=== PATIENT | female | born 1990 | race Caucasian/White ===

== ENCOUNTER 2021-10-18 16:28 | Emergency (ER) | payer SELFPAY ==
[2021-10-18 16:43] VITALS: BP 144/97; PULSE 87; RESP 18; TEMP 36.9; O2SAT 98; BMI 36.0
--- NOTE | 2021-10-18 17:33 | USR_ITS ---
PROCEDURE INFORMATION: Exam: US Duplex Artery and Vein of the Abdominal and/or Reproductive Organs. Complete Ovaries Exam date and time: 10/18/2021 6:45 PM Age: 31 years old Clinical indication: Pain and abnormal findings; Abnormal lab test; Other: Positive serum with tubal litigation; Other: Back pain; Gestational age or lmp: 08/17/2021 lmp; Prior surgery; Additional info: History of tubal, positive preg test at home x5 TECHNIQUE: Imaging protocol: Real-time duplex ultrasound scan of the arterial and venous flow with color Doppler flow and spectral waveform analysis with image documentation. Complete duplex exam focused on the ovaries. Duplex exam was added to evaluate for torsion and other vascular conditions. COMPARISON: US pelvic complete* [id number] 07/12/2019 9:06 AM FINDINGS: Right ovary/adnexa: Normal duplex of the ovary. Normal Doppler waveforms and color flow. Arterial and venous flow are normal. No evidence of ovarian torsion. Left ovary/adnexa: Normal duplex of the ovary. Normal Doppler waveforms and color flow. Arterial and venous flow are normal. No evidence of ovarian torsion. PROCEDURE INFORMATION: Exam: US First Trimester, Transabdominal and US , Transvaginal Exam date and time: 10/18/2021 6:45 PM Age: 31 years old Clinical indication: Pain and abnormal findings; Abnormal lab test; Other: Positive serum with tubal litigation; Other: Back pain; Gestational age or lmp: 08/17/2021 lmp; Prior surgery; Additional info: History of tubal, positive preg test at home x5 LABS AND CLINICAL REPORTS: Serum Choriogonadotropin (HCG): 240 mIU/mL Last menstrual period start date: 08/17/2021 Gestational age (LMP): 8 w 6 d Estimated due date (LMP): 05/24/2022 TECHNIQUE: Imaging protocol: Real-time transabdominal obstetrical ultrasound of the maternal pelvis and a first trimester , less than 14 weeks 0 days, with image documentation. Transvaginal imaging was used for better evaluation of the fetus, adnexa, and/or cervix. COMPARISON: US pelvic complete* [id number] 07/12/2019 9:06 AM FINDINGS: Gestation: No gestational sac is identified in the uterus or either adnexa. No ectopic is identified. Embryonic/ heart rate: No gestational sac visualized. Extra-embryonic membranes/Placenta: No gestational sac visualized. Amniotic fluid: No gestational sac visualized. BIOMETRY: Gestational age (AUA): No gestational sac visualized. MATERNAL: Uterus: Uterus measures 2.3 cm x 3.5 cm x 5.9 cm. Uterus is unremarkable. Cervix: Cervical length measures 1.7 cm. Right ovary/adnexa: Right ovary measures 4.1 cm x 3.1 cm x 2.5 cm. Right ovarian volume is 16.8 mL. The right ovary is appropriate in appearance with subcentimeter follicular cysts. Right ovarian Doppler demonstrates good arterial and venous flow. No right ovarian torsion. Left ovary/adnexa: Left ovary measures 3.8 cm x 3.3 cm x 1.7 cm. Left ovarian volume is 11 mL. The left ovary has an appropriate appearance with subcentimeter cysts. Doppler evaluation left ovary demonstrates good arterial and venous flow. No left ovarian torsion. Intraperitoneal space: No intraperitoneal free fluid. US/US OB <=14 wk fetus w transvag IMPRESSION: Normal ovarian arterial and venous vascular flow. No evidence ovarian torsion. IMPRESSION: 1. Uterus is unremarkable. No gestational sac is identified in the uterus or either adnexa. No ectopic is identified. Follow-up beta hCG/ultrasound may be helpful to further evaluate since early cannot be excluded. 2. Unremarkable ovaries. Subcentimeter ovarian follicular cysts. No ovarian torsion.
--- NOTE | 2021-10-18 17:34 | W.ED.BACK ---
HPI - Back Pain/Injury General: Chief Complaint: Back Pain/Injury Stated Complaint: back pain Time Seen by Provider: 10/18/21 17:18 History of Present Illness: Patient comes in with concerns for abnormal . States she had a tubal ligation 6 years ago. States her last menstrual cycle was a month ago, and she has had 5 positive test at home. Was advised by the [facility] to come to the emergency department for ultrasound. She denies any abdominal pain, vaginal bleeding or discharge, sick symptoms including fever, nausea, vomiting, diarrhea. Associated symptoms: Deny abdominal pain, dysuria, fever(s), nausea or vomiting Review of Systems Const: Denies: fever(s) or body aches Eyes: Denies: change in vision or blurry vision ENMT: Denies: throat pain or odynophagia Card: Denies: chest pain or palpitations Resp: Denies: dyspnea or productive cough GI: Denies: abdominal pain, nausea or vomiting : Denies: flank pain or dysuria Musc: Denies: neck pain or back pain Skin/Breast: Denies: rash or pruritus Neuro: Denies: headache(s) or numbness in extremities Psych: Denies: anxiety or change in appetite Endo: Denies: polyuria or excessive sweating [facility] Female Reproductive History: Date of last menstrual period: 09/16/21 Physical Exam Const: COMMON NORMALS: no acute distress, patient oriented x3, healthy appearing and alert HENMT: COMMON NORMALS: normocephalic and atraumatic HEAD & SCALP: normocephalic and atraumatic Eye: COMMON NORMALS: Equal, round and reactive pupils present and EOMs intact bilaterally PUPIL: Yes Equal, round and reactive pupils present Neck/C-Spine: COMMON NORMALS: full ROM and supple Resp: COMMON NORMALS: normal respiratory effort, No retractions and No use of accessory muscles Cardio: COMMON NORMALS: regular rate and regular rhythm RATE: regular rate RHYTHM: regular rhythm GI: COMMON NORMALS: Normal to inspection, nondistended, normoactive bowel sounds present, Soft to palpation and non-tender PALPATION: Yes Soft to palpation Back/Pelvis: COMMON NORMALS: thoracic and lumbar spine normal to inspection and no thoracic nor lumbar tenderness Extremity: COMMON NORMALS: normal to inspection and full ROM Neuro: COMMON NORMALS: patient oriented x3 SENSORIUM/ORIENTATION: Yes alert Psych: COMMON NORMALS: mental status grossly normal and cooperative Skin: COMMON NORMALS: no rashes or lesions noted and no wounds GENERAL SKIN EXAM: no rashes or lesions noted Course Vital Signs: Vital signs: Vital Signs Temperature 98.5 F 10/18/21 16:43 Pulse Rate 87 10/18/21 16:43 Respiratory Rate 18 10/18/21 16:43 Blood Pressure 144/97 10/18/21 16:43 Pulse Oximetry 98 10/18/21 16:43 Oxygen Delivery Me thod 10/18/21 16:43 MDM - Back Pain/Injury Medical Decision Making Patient comes in with concerns for abnormal . States she had a tubal ligation 6 years ago. States her last menstrual cycle was a month ago, and she has had 5 positive test at home. [facility] come to [facility] department for ultrasound. She denies any abdominal pain, vaginal bleeding or discharge, sick symptoms including fever, nausea, vomiting, diarrhea. Physical exam is unremarkable. Will check labs, ultrasound, and reassess. On reassessment I talked to the patient about the test results. We will have her follow-up on Thursday in clinic to have hCG retested. Will discharge home at this time with precautions return for worsening or changing symptoms. Labs : 10/18/21 17:30 10/18/21 17:30 Radiology Impressions Obstetrics Ultrasound 10/18/21 17:33 IMPRESSION: Normal ovarian arterial and venous vascular flow. No evidence ovarian torsion. IMPRESSION: 1. Uterus is unremarkable. No gestational sac is identified in the uterus or either adnexa. No ectopic is identified. Follow-up beta hCG/ultrasound may be helpful to further evaluate since early cannot be excluded. 2. Unremarkable ovaries. Subcentimeter ovarian follicular cysts. No ovarian torsion. Laboratory Results WBC 9.2 10^3/uL (4.0-10.0) 10/18/21 17:30 RBC 4.51 10^6/uL (4.1-5.3) 10/18/21 17:30 Hgb 13.0 g/dL (11.5-15.3) 10/18/21 17:30 Hct 38.6 % (37.0-47.0) 10/18/21 17: MCV 85.6 fl (81-99) 10/18/21 17: MCH 28.8 pg (28.0-34.0) 10/18/21: MCHC 33.7 g/dL (30.0-36.0) 10/18/21: RDW 13.0 % (12.1-15.1) 10/18/21: Plt Count 246 10^3/cmm (130-400) 10/18/21: MPV 10.8 fL (7.4-10.4) H 10/18/21: Neut % (Auto) 57.0 % 10/18/21: Lymph % (Auto) 34.6 % 10/18/21: Stephens % (Auto) 6.2 % 10/18/21: Eos % (Auto) 1.3 % 10/18/21: Baso % (Auto) 0.5 % 10/18/21: Neut # (Auto) 5.24 10^3/uL (1.8-7.7) 10/18/21: Lymph # (Auto) 3.2 10^3/uL (0.8-4.8) 10/18/21: Stephens # (Auto) 0.6 10^3/uL (0.2-0.9) 10/18/21: Eos # (Auto) 0.1 10^3/uL (0.0-0.8) 10/18/21: Baso # (Auto) 0.1 10^3/uL (0.0-0.1) 10/18/21: Nucleated RBC % (auto) 0 % 10/18/21: Nucleated RBCs # 0.0 /100WBC 10/18/21: Sodium 139 mmol/L (136-145) 10/18/21: Potassium 3.6 mmol/L (3.5-5.1) 10/18/21: Chloride 106 mmol/L (98-107) 10/18/21: Carbon Dioxide 21 mmol/L (22-29) L 10/18/21: Anion Gap 15.6 (5-19) 10/18/21 17:30 BUN 9 mg/dL (6-20) 10/18/21 17:30 Creatinine 0.7 mg/dL (0.5-0.9) 10/18/21 17:30 GFR Calculation 98.3 mL/min (90-130) 10/18/21 17:30 Glucose 81 mg/dL (65-115) 10/18/21 17:30 Calculated Osmolality 286 mOsm/kg (285-295) 10/18/21 17:30 Calcium 9.1 mg/dL (8.5-10.5) 10/18/21 17:30 Total Bilirubin 0.3 mg/dL (0.15-1.2) 10/18/21 17:30 AST 17 U/L (0-32) 10/18/21 17:30 ALT 21 U/L (0-33) 10/18/21 17:30 Alkaline Phosphatase 65 IU/L (35-105) 10/18/21 17:30 Total Protein 7.1 g/dL (6.6-8.7) 10/18/21 17:30 Albumin 4.5 g/dL (3.5-5.2) 10/18/21 17:30 Globulin 2.6 g/dL (1.3-4.6) 10/18/21 17:30 Ser , Semi-Qnt 240.30 mIU/mL 10/18/21 17:30 Discharge Plan Discharge Patient Disposition: Home Clinical Impression: Positive blood test Condition: Stable Discharge Orders: Discharge ED (Routine); Ordered 10/18/21 Ordered By: Roger Garrido Referrals: Brian Cortés MD [Primary Care Provider] - Coding Level of Care Code ED Reactor Service Operator for Chg Fwd Exam Comprehensive
[2021-10-18 17:51] LABS: Basophils # 0.1 10^3/uL (0.0-0.1); Basophils % 0.5 %; Eosinophils # 0.1 10^3/uL (0.0-0.8); Eosinophils % 1.3 %; Hematocrit 38.6 % (37.0-47.0); Lymphocytes # 3.2 10^3/uL (0.8-4.8); Lymphocytes % 34.6 %; Mean Corpuscular HGB Conc 33.7 g/dL (30.0-36.0); Mean Corpuscular Hemoglobin 28.8 pg (28.0-34.0); Mean Corpuscular Volume 85.6 fl (81-99); Mean Platelet Volume 10.8 fL (7.4-10.4); Monocytes # 0.6 10^3/uL (0.2-0.9); Monocytes % 6.2 %; Neutrophils # 5.24 10^3/uL (1.8-7.7); Nucleated Red Blood Cells % 0 %; Platelet Count 246 10^3/cmm (130-400); Red Blood Count 4.51 10^6/uL (4.1-5.3); White Blood Count 9.2 10^3/uL (4.0-10.0)
[2021-10-18 18:26] LABS: Alanine Aminotransferase 21 U/L (0-33); Albumin Level 4.5 g/dL (3.5-5.2); Alkaline Phosphatase 65 IU/L (35-105); Anion Gap 15.6 (5-19); Aspartate Amino Transferase 17 U/L (0-32); Blood Urea Nitrogen 9 mg/dL (6-20); Calcium 9.1 mg/dL (8.5-10.5); Carbon Dioxide 21 mmol/L (22-29); Chloride 106 mmol/L (98-107); Globulin 2.6 g/dL (1.3-4.6); Glomerular Filtration Rate 98.3 mL/min (90-130); Glucose 81 mg/dL (65-115); Osmolality Calculated 286 mOsm/kg (285-295); Potassium 3.6 mmol/L (3.5-5.1); Sodium 139 mmol/L (136-145); Total Bilirubin 0.3 mg/dL (0.15-1.2); Total Protein 7.1 g/dL (6.6-8.7)
[2021-10-18 20:20] VITALS: PULSE 81; RESP 16; O2SAT 98
== END 2021-10-18 20:21 | disposition home or self-care (01) ==
PROVIDERS: Emergency Medicine; Emergency Provider Emergency Medicine; PCP Family Medicine
DX: Z32.01 Encounter for pregnancy test, result positive (principal)
CPT/HCPCS: 76801; 76817; 80053; 84702; 85025; 99284